=== PATIENT | male | born 1955 | race Caucasian/White ===

== ENCOUNTER 2018-06-16 12:37 | Day surgery (SDC) | payer MEDICARE ==
[2018-06-16] MEDS ORDERED: LIDOCAINE 2% MDV (20MG/ML) 20ML VIAL IV ONE (12:38)
[2018-06-16] MEDS ORDERED: PROPOFOL 10 MG/ML VIAL IV ONE (12:38)
--- NOTE | 2018-06-17 08:50 | Operative Note ---
OPERATION: COLONOSCOPY with cold snare and cold forceps polypectomies. PREOPERATIVE DIAGNOSIS: History of polyps. POSTOPERATIVE DIAGNOSIS: Polyps and sigmoid diverticulosis. PREPARATION QUALITY: Fair to good. ESTIMATED BLOOD LOSS: Minimum. SPECIMENS: Transverse colon polyps x3 and descending colon polyp x1. COMPLICATIONS: None apparent. PROCEDURE: After informed consent was obtained from the patient, he was placed in the left lateral decubitus position in the endoscopy suite, sedated and monitored by the department of anesthesia. Digital rectal exam was unremarkable. A well-lubricated PMI127 colonoscope was inserted into the rectum and advanced to the cecum. Preparation quality was fair to good. The cecum, cecal bulb, ileocecal valve, and ascending colon were unremarkable. In the transverse colon, there were 3 diminutive polyps ranging in size from 3-4 mm each removed with a cold forceps. Minimal bleeding was noted. The descending colon revealed a 4-5 mm sessile polyp removed with a cold snare. Minimal bleeding was noted. The sigmoid colon demonstrated no polyps but there were mild diverticular changes noted. The rectum was unremarkable in forward and in J-turn views. The endoscope was straightened, the rectal ampulla deflated, and the endoscope was removed. RECOMMENDATIONS: The patient should resume his medications. I would recommend a high-fiber diet and a repeat exam in 3 years. As always, thank you for allowing me to participate in the healthcare of your patients. CC: LAKEISHA LUGO MD, FACP [facility]
== END 2018-06-16 14:20 | disposition home or self-care (01) ==
LOC: HOP 12:37
PROVIDERS: ATTEND Internal Medicine Gastroenterology
DX: Z12.11 Encounter for screening for malignant neoplasm of colon (principal); Z86.010 Personal history of colon polyps; D12.4 Benign neoplasm of descending colon; D12.3 Benign neoplasm of transverse colon; K57.30 Diverticulosis of large intestine without perforation or abscess without bleeding; I10 Essential (primary) hypertension; E78.00 Pure hypercholesterolemia, unspecified; E11.9 Type 2 diabetes mellitus without complications